=== PATIENT | female | born 2005 | race Caucasian/White ===

== ENCOUNTER 2024-08-30 04:59 | Emergency (ER) | payer OTHER ==
[~2024-08-30] VITALS: Ht 172.7 cm; Wt 70.0 kg
[2024-08-30 05:04] VITALS: O2SAT 100
[2024-08-30] MEDS: SODIUM CHLORIDE 0.9% 1,000 ML IV ONE ×2 (05:19→07:23)
[2024-08-30] MEDS: LORAZEPAM 2MG/ML INJ IV ONE (05:23)
[2024-08-30 05:30] LABS: BASOPHILS % 0.4 % (0.0-2.0); EOSINOPHILS % 0.2 % (0.0-5.0); HEMATOCRIT. 33.6 % (36.0-48.0); HEMOGLOBIN. 11.3 g/dL (12.0-16.0); LYMPHOCYTES % 16.8 % (20.0-50.0); MEAN CORPUSCULAR HGB CONC 33.7 g/dL (31.0-37.0); MEAN CORPUSCULAR VOLUME 89.2 fL (81.0-99.0); MEAN PLATELET VOLUME 7.8 fl (7.4-10.4); MONOCYTES % 8.1 % (2.0-8.0); NEUTROPHILS % 74.5 % (40.0-76.0); PLATELET 351 x1000/uL (130-400); RED BLOOD CELL COUNT 3.77 mill/uL (4.2-5.4); RED CELL DISTRIBUTION WIDTH 14.5 % (11.6-14.6); WHITE BLOOD COUNT 16.3 x1000/uL (4.5-11.0)
[2024-08-30 05:45] LABS: CHLORIDE 110 mEq/L (98-107); POTASSIUM 3.3 mEq/L (3.5-5.1); SODIUM 144 mEq/L (136-145)
[2024-08-30 05:46] LABS: CALCIUM 8.7 mg/dL (8.7-10.4); CARBON DIOXIDE 20 mEq/L (21-32)
[2024-08-30 05:51] LABS: CREATININE 0.9 mg/dL (0.6-1.0); GLUCOSE 86 mg/dL (70-105); UREA NITROGEN BLOOD 10 mg/dL (9-23)
[2024-08-30 06:24] LABS: PROTHROMBIN TIME 10.9 sec (9.6-11.0)
[2024-08-30 06:42] LABS: HCG SCREEN NEGATIVE
[2024-08-30 06:54] LABS: CLARITY URINE CLEAR (CLEAR); COLOR URINE YELLOW (YELLOW); GLUCOSE URINE NEGATIVE (NEGATIVE); KETONES URINE NEGATIVE (NEGATIVE); LEUKOCYTE ESTERASE URINE NEGATIVE (NEGATIVE); NITRITE URINE NEGATIVE (NEGATIVE); OCCULT BLOOD URINE 1+ (NEGATIVE); PROTEIN URINE NEGATIVE (NEGATIVE); SPECIFIC GRAVITY URINE 1.006 (1.005-1.030); UROBILINOGEN URINE 0.2 E.U./dL (0.2-1.0)
[2024-08-30 07:14] LABS: *AMPHETAMINES SCREEN URINE NEGATIVE (NEGATIVE); *BENZODIAZEPINES SCREEN URINE NEGATIVE (NEGATIVE)
[2024-08-30 07:15] LABS: *BARBITURATES SCREEN URINE NEGATIVE (NEGATIVE); *COCAINE SCREEN URINE NEGATIVE (NEGATIVE); CANNABINOID URINE SCREEN NEGATIVE (NEGATIVE); ECSTASY MDMA SCREEN URINE NEGATIVE (NEGATIVE); METHADONE URINE SCREEN NEGATIVE (NEGATIVE); OPIATES URINE SCREEN NEGATIVE (NEGATIVE); PHENCYCLIDINE URINE SCREEN NEGATIVE (NEGATIVE)
[2024-08-30 07:33] LABS: ETHANOL BLOOD 175 mg/dL (<10); TROPONIN I HIGH SENSITIVITY 13 ng/L (3.0-34)
[2024-08-30 07:35] LABS: CREATINE KINASE 331 IU/L (34-145)
[2024-08-30 07:36] LABS: BACTERIA URINE 1+; SQUAMOUS EPITHELIAL CELL URINE 2+ /lpf (RARE/1+); YEAST URINE NONE SEEN
[2024-08-30 08:07] VITALS: BP 102/58; PULSE 84; RESP 17; O2SAT 97
== END 2024-08-30 08:12 ==
LOC: ER 04:59
DX: R00.2 Palpitations (principal); T50.901A Poisoning by unspecified drugs, medicaments and biological substances, accidental (unintentional), initial encounter; F10.90 Alcohol use, unspecified, uncomplicated; Y92.89 Other specified places as the place of occurrence of the external cause; Z79.899 Other long term (current) drug therapy
CPT/HCPCS: 80305; 80048; 81003; 80320; 82550; 84703; 85025; 85610; 84484; 36415; 71045; 93005; 96361; 96374; 99285; J2060; J7030; G0480